=== PATIENT | female | born 1960 | race Caucasian/White ===

== ENCOUNTER 2025-04-08 06:40 | Inpatient (IN) ==
--- NOTE | 2025-03-24 10:15 | Anesthesiology Consultation ---
Date of Service March 24, 2025 Assessment & Plan (1) Encounter for pre-operative examination: - check BSG am DOS. - surgeon ordered medical clearance 03/16/25: "...pre-op lab results and CXR results were reviewed (no significant abnormalities)...low risk...cleared for scheduled surgery...0.1% risk of myocardial infarction or cardiac arrest, intraoperatively or up to 30 days post-op..." - Per coarse wire drawer on 03/23/25: No known infectious disease contacts, current infectious disease symptoms in past 10 days or COVID positive test result in the past 30 days. Chart Review Chart Review: Acceptable Risk for Surgery and Patient NOT seen in Pre Admission Testing History Surgery Operation Date: 04/06/25 07:45 Proposed Procedures p Decompression and Fusion L4-S1 - Quincy Ray DO Height/Weight Height: 5 ft 2 in Weight: 53.07 kg Allergies Allergy/AdvReac Type Severity Reaction Status Date / Time surgical glue Allergy red, Uncoded 03/23/25 15:32 itching, burning skin Medications Home Medications Medication Instructions Recorded Confirmed Last Taken ondansetron HCl 4 mg tablet 4 mg PO Q6H PRN nausea and 12/04/22 03/23/25 Unknown vomiting 4 days #20 tabs acetaminophen 500 mg tablet 1,000 mg PO Q6H PRN Pain 03/23/25 03/23/25 Unknown acetaminophen 650 mg 1,300 mg PO Q12H PRN Pain 03/23/25 03/23/25 Unknown tablet,extended release alendronate 70 mg tablet 70 mg PO Q7D 03/23/25 03/23/25 Unknown anastrozole 1 mg tablet 1 mg PO QAM 03/23/25 03/23/25 Unknown bimatoprost 0.03 % drops with 1 applic topical UD 03/23/25 03/23/25 Unknown applicator, eyelash base (Latisse) celecoxib 200 mg capsule (Celebrex) 200 mg PO QAM 03/23/25 03/23/25 Unknown cholecalciferol (vitamin D3) 125 125 mcg PO BID 03/23/25 03/23/25 Unknown mcg (5,000 unit) tablet (Vitamin D3) clindamycin phosphate 1 % topical 1 applic topical BID PRN Acne 03/23/25 03/23/25 Unknown gel fenofibrate 160 mg tablet 160 mg PO QAM 03/23/25 03/23/25 Unknown glucosamine-chondroitin 250 mg-200 2 tab PO QAM 03/23/25 03/23/25 Unknown mg tablet multivitamin 1 tab PO QAM 03/23/25 03/23/25 Unknown spironolactone 50 mg tablet 50 mg PO QAM 03/23/25 03/23/25 Unknown trazodone 50 mg tablet 50 - 75 mg PO HS PRN RLS 03/23/25 03/23/25 Unknown vitamin C 500 mg-multivitamin with 1 tab PO BID PRN cold season 03/23/25 03/23/25 Unknown minerals chewable tablet (Emergen-C) Past Medical History Medical History (Updated 03/24/25 @ 10:11 by Josiane Villalpando PA-C) Hx of breast cancer dx 11/2021, rt breast, sx and xrt Hx of gastroesophageal reflux (GERD) Past Surgical History Surgical History (Updated 03/24/25 @ 10:11 by Josiane Villalpando PA-C) History of esophagogastroduodenoscopy (EGD) (2004) History of lumpectomy of right breast removed SLN; no limb restriction History of reconstruction of right breast (06/12/23) w/ bilat. breast reduction and reconstruction History of total right knee replacement (02/2013) Hx of colonoscopy ~2019 Hx of hysterectomy (2016) S/P bladder repair bladder sling sx, 2x Social History Smoking Status: Never smoker Do You Dip or Chew Tobacco: No Hx Alcohol Use: Yes alcohol intake frequency: a few times a month Hx Substance Use: No substance use type: former substance user and marijuana Last Used Substance Other:: many years ago, occasional use then Lab Results Anesthesia Preop Results Results Anesthesia Widget: WBC 16.32 K/ul (4.8-10.8) H 02/11/25 Hgb 13.4 g/dl (12.0-16.0) 02/11/25 Hct 39.7 % (37.0-47.0) 02/11/25 Plt 436 K/uL (130-400) H 02/11/25 Na 138 mmol/L (136-145) 02/11/25 K 4.6 mmol/L (3.5-5.1) 02/11/25 Cl 104 mmol/L (98-107) 02/11/25 CO2 25 mmol/L (21-32) 02/11/25 BUN 26 mg/dl (6-23) H 02/11/25 Creat 0.68 mg/dl (0.6-1.2) 02/11/25 Glucose Level 187 mg/dl (70-99(Fasting)) H 02/11/25 PT 10.8 Seconds (9.0-12.0) 02/11/25 PTT 22 Seconds (21-31) 02/11/25 INR 1.0 (0.9-1.1) 02/11/25 Urine Color Yellow 02/11/25 Urine Appearance Clear (Clear) 02/11/25 Urine pH 6.0 (4.5-7.5) 02/11/25 Urine Specific [place] 1.009 (1.000-1.030) 02/11/25 Urine Protein Negative (Negative) 02/11/25 Urine Glucose (UA) Negative (Negative) 02/11/25 Urine Ketones Negative (Negative) 02/11/25 Urine Blood Negative (Negative) 02/11/25 Urine Nitrite Negative (Negative) 02/11/25 Urine Bilirubin Negative (Negative) 02/11/25 Urine Urobilinogen Negative (Negative) 02/11/25 Urine Leukocyte Esterase Negative (Negative) 02/11/25 Blood Type O Negative 02/11/25 Antibody Screen NEGATIVE 02/11/25 Testing Laboratory Results PCP documented review of above labs and clearance for surgery. Electrocardiogram Date: 02/11/25 Sinus rhythm with 1st degree AV block, rate 92 bpm Possible inferior infarct, age undetermined Possible anterior infarct, age undetermined No significant change vs February 04, 2013 EKG Chest X-Ray Date: 02/11/25 Normal chest x-ray
[~2025-04-08 06:40] MED LIST: DEXAMETHASONE SOD INJ 4 MG/ML VIAL ONE; LIDOCAINE 2% 20 MG/ML 5 ML SYR IV ONE; MIDAZOLAM HCL 1 MG/ML 2ML VIAL ONE; ONDANSETRON INJ 2 MG/ML 2 ML VIAL ONE; PROPOFOL IV EMULSION 10 MG/ML 20 ML VIAL IV ONE; ROCURONIUM BROMIDE 10 MG/ML 5 ML VIAL IV ONE
[2025-04-08] MEDS ORDERED: ROCURONIUM BROMIDE 10 MG/ML 5 ML VIAL IV ONE (07:06)
[2025-04-08] MEDS ORDERED: GLYCOPYRROLATE 0.2 MG/ML VIAL ONE (07:06)
[2025-04-08] MEDS ORDERED: ONDANSETRON INJ 2 MG/ML 2 ML VIAL ONE (07:06)
[2025-04-08] MEDS ORDERED: LIDOCAINE 2% 2 ML VIAL/AMP(20MG/ML) INFIL ONE (07:06)
[2025-04-08] MEDS ORDERED: DEXAMETHASONE SOD INJ 4 MG/ML VIAL ONE (07:06)
[2025-04-08] MEDS ORDERED: PROPOFOL IV EMULSION 10 MG/ML 20 ML VIAL IV ONE (07:06)
[2025-04-08] MEDS ORDERED: MIDAZOLAM HCL 1 MG/ML 2ML VIAL ONE (07:06)
[2025-04-08] MEDS ORDERED: SUGAMMADEX SODIUM 200 MG/2 ML VIAL IV ONE (07:10)
[2025-04-08] MEDS ORDERED: KETAMINE HCL 10MG/ML SYR ONE (07:12)
[2025-04-08] MEDS: LR 15ML/HR IV SCH ×2 (07:14→07:25)
[2025-04-08] MEDS: LR 60ML/HR IV SCH ×2 (07:14→07:24)
[2025-04-08] MEDS: ACETAMINOPHEN 500 MG TAB PO SCH ×2 (07:24→07:25)
[2025-04-08] MEDS: GABAPENTIN 600 MG DOSE PO SCH ×2 (07:25)
[2025-04-08] MEDS: CeleBREX 200 MG CAP PO SCH ×2 (07:25)
--- NOTE | 2025-04-08 07:45 | History & Physical Bridge Note ---
Date of Service April 08, 2025 History & Physical Bridge Note I have examined the patient, reviewed the History & Physical and in the interval since the performance of the History & Physical I have noted the following changes of clinical significance: no changes noted
--- NOTE | 2025-04-08 07:46 | History & Physical Report ---
Date of Service April 08, 2025 Assessment & Plan (1) Lumbosacral spondylosis with radiculopathy: Plan: decompression fusion L4-S1 History of Present Illness Chief Complaint: Back and bilateral leg pain Primary Care Provider: Mira Ladd DO This is a 64-year-old female who presents with chronic cyst and back and bilateral leg pain after failing course of nonoperative cares for surgical invention. Allergies Allergy/AdvReac Type Severity Reaction Status Date / Time surgical glue Allergy red, Uncoded 04/08/25 06:40 itching, burning skin Home Medications Medication Instructions Recorded Confirmed Type ondansetron HCl 4 mg tablet 4 mg PO Q6H PRN nausea and 12/04/22 04/08/25 Rx vomiting 4 days #20 tabs acetaminophen 500 mg tablet 1,000 mg PO Q6H PRN Pain 03/23/25 04/08/25 History acetaminophen 650 mg 1,300 mg PO Q12H PRN Pain 03/23/25 04/08/25 History tablet,extended release alendronate 70 mg tablet 70 mg PO Q7D 03/23/25 04/08/25 History anastrozole 1 mg tablet 1 mg PO QAM 03/23/25 04/08/25 History bimatoprost 0.03 % drops with 1 applic topical UD 03/23/25 04/08/25 History applicator, eyelash base (Latisse) celecoxib 200 mg capsule (Celebrex) 200 mg PO QAM 03/23/25 04/08/25 History cholecalciferol (vitamin D3) 125 125 mcg PO BID 03/23/25 04/08/25 History mcg (5,000 unit) tablet (Vitamin D3) clindamycin phosphate 1 % topical 1 applic topical BID PRN Acne 03/23/25 04/08/25 History gel fenofibrate 160 mg tablet 160 mg PO QAM 03/23/25 04/08/25 History glucosamine-chondroitin 250 mg-200 2 tab PO QAM 03/23/25 04/08/25 History mg tablet multivitamin 1 tab PO QAM 03/23/25 04/08/25 History spironolactone 50 mg tablet 50 mg PO QAM 03/23/25 04/08/25 History trazodone 50 mg tablet 50 - 75 mg PO HS PRN RLS 03/23/25 04/08/25 History vitamin C 500 mg-multivitamin with 1 tab PO BID PRN cold season 03/23/25 04/08/25 History minerals chewable tablet (Emergen-C) Past Med/Surg History Problem List (Updated 04/08/25 @ 07:45 by Quincy Ray, DO) Lumbosacral spondylosis with radiculopathy Encounter for pre-operative examination Medical History Hx of breast cancer dx 11/2021, rt breast, sx and xrt Hx of gastroesophageal reflux (GERD) Surgical History History of esophagogastroduodenoscopy (EGD) (2004) History of lumpectomy of right breast removed SLN; no limb restriction History of reconstruction of right breast (06/12/23) w/ bilat. breast reduction and reconstruction History of total right knee replacement (02/2013) Hx of colonoscopy ~2018 Hx of hysterectomy (2016) S/P bladder repair bladder sling sx, 2x Social History Smoking Status: Never smoker Second Hand Exposure: No; Do You Dip or Chew Tobacco: No; Tobacco Cessation Education Requested by Patient: No Hx Alcohol Use: Yes Hx Substance Use: No Preferred Language: Italian Communication Ability: Effective Patcher Bowling Ball Required: No Beliefs That Will Affect Care: None Current Living Situation: Spouse Other Information That Helps Us Care for You: No Feels Safe at Home: Yes Safety Concerns: Feels Safe At This Time Assistive Devices: Contacts Physical Exam Physical Exam: Patient is alert and oriented Heart regular rhythm Lungs clear Results & Data Results & Data Vital Signs (Past 12 Hours) Vital Signs Temp Pulse Resp BP Pulse Ox O2 Del Method 04/08/25 06:53 36.9 C 81 18 143/70 H 96 Room Air
[2025-04-08] MEDS: ceFAZolin 330 MG/ML 1 GM VIAL ONE (08:16)
[2025-04-08] MEDS: BUPIVACAINE/EPINEPHRINE 0.25% 1:200,000 30 ML VIAL ONE (08:16)
--- NOTE | 2025-04-08 09:53 | Fluoroscopy Report ---
INTRAOPERATIVE RADIOGRAPHS CLINICAL HISTORY: L4-S1 spinal fusion. Fluoro time: 19 seconds Ka,r: 12.94 mGy FINDINGS: 2 spot fluoroscopic views of the lumbar spine are presented. There has been discectomy at L 4-L5 and L5-S1 with laminectomy and posterior fusion at L4-S1. Interpedicular screws are present at a ll levels. There orthopedic hardware appears intact. IMPRESSION: Intraoperative images from lumbar spinal fusion surgery as above. Electronically signed by: Shady Lee M.D. 04/08/2025 9:52 AM
--- NOTE | 2025-04-08 09:57 | Operative Report ---
Post Operative Report Pre & Post Diagnosis Operation Date: 04/08/25 07:45 Pre-Op diagnosis: #1 lumbar spondylosis with radiculopathy #2 lumbar spondylolisthesis with radiculopathy #3 lumbar spinal stenosis Postop diagnosis: Same I identified the patient and participated in the time-out.: Yes Procedure Operation Date: 04/08/25 07:45 #1 lumbar decompression with bilateral medial facetectomies and foraminotomies L3-L4, L4-5 L5-S1. #2 posterior spinal fusion L4-S1. #3 placement posterior instrumentation L4-S1. #4 interbody fusion L4-L5 L5-S1. #5 placement of Spira 12 x 26 mm x 2 at L4-5 and 11 x 26 mm x 2 at L5-S1. #6 placement of Proteus, with Koros bone graft in the posterior lateral gutters and os design interbody space. #7 application of versa wrap of the exposed dura. Surgeon Quincy Ray, Quart[employer] Blasting Maggie Wild Estimated Blood Loss 100 Findings Consistent with Post-Op Diagnosis Specimens None Indications This is a 64-year-old female who presents by much diagnosis of clinical course of nonoperative care is here for surgical invention. Description of Procedure Patient was met with identified informed consent obtained. Patient was then taken the operative suite underwent intubation placed in a prone position adjusted without the Dmitry frame. All bony promises well-padded eyes inspected to ensure no external precipice upon them. This point lumbar spine is prepped and draped in normal sterile fashion. Sharp dissection with the assistance of Bovie cautery from down to and exposing the lamina transverse processes of L4-5 and the sacral ala bilaterally. From a [place] 5 fashion complete laminectomy L5 was performed followed by L4 with bilateral medial facetectomies and foraminotomies addressing severe neural compression. I did perform partial laminectomy of L3 with bilateral medial facetectomies to address all subarticular stenosis. Pedicle screws were then placed in L4-L5 and S1 levels bilaterally with assistance of fluoroscopy. By way the transforaminal approach on the right discectomy of L5-S1 was performed endplates guided to subcortical bleeding bone and a 11 x 26 mm Spira cage tapped in position. Then proceeded to the left transforaminal region L5-S1. Again discectomy performed. A second 11 x 26 mm Spira cage tapped in position. Then proceeded L4-L5 by way of transfer approach and left discectomy was performed. Endplates guided to subcortical bleeding bone and a 12 x 26 mm Spira cage tapped into position. Then proceeded to the right transforaminal region at L4-5. Again discectomy performed. Endplates guided to subcortical mean bone and a second 12 x 26 mm Spira cage tapped into position. Please note all cages were filled with os design bone graft. The rods were then compressed locked in final position bilaterally. Transverse processes of L4-5 and sacral ala burred to subcortical bleeding bone. Koros combined with Proteus bone graft placed in posterior gutters. Versa wrap placed of exposed dura. 15 round KERRY drain inserted. Incision was then closed with 1 Vicryl the fascia 2-0 Vicryl subcutaneously and 4 Monocryl for final skin closure. Steri-Strips and sterile dressing placed. Patient waken taken to PACU in stable condition. Please note Maggie Wild was present at the entire procedure and while the patient positioning complex portion of the surgery and final skin closure. I attest to the content of the Intraoperative Record and any orders documented therein. Any exceptions are noted below.
[2025-04-08] MEDS ORDERED: ATROPINE SULFATE 0.1 MG/ML 10ML SYR IV PRN (10:09)
[2025-04-08] MEDS ORDERED: PROMETHAZINE HCL 6.25 MG in SODIUM CHLORIDE 0.9% 50 ML IV PRN (10:09)
[2025-04-08] MEDS ORDERED: ONDANSETRON INJ 2 MG/ML 2 ML VIAL IV PRN (10:09)
[2025-04-08] MEDS: HYDROmorphone INJ 2 MG/ML SYR/VIAL IV PRN (10:59)
[2025-04-08] MEDS ORDERED: ACETAMINOPHEN 1,000 MG/100 ML VIAL IV PRN (11:53)
[2025-04-08] MEDS ORDERED: PROMETHAZINE 12.5 MG/50.5 ML BAG IV PRN (11:53)
[2025-04-08] MEDS ORDERED: NALOXONE HCL 0.4 MG/1 ML VIAL/CARP IV PRN (11:53)
[2025-04-08] MEDS ORDERED: LORazepam 0.5 MG TAB PO PRN (11:53)
[2025-04-08] MEDS ORDERED: NON-FORMULARY MEDICATION (Vitamin C-Multivitamin-Mineral [Emergen-C] 500 mg Tablet,Chewabl PO PRN (11:53)
[2025-04-08] MEDS ORDERED: HYDROmorphone INJ 0.5 MG/0.5 ML SYR IV PRN (11:53)
[2025-04-08] MEDS ORDERED: ONDANSETRON 4 MG OD TAB PO PRN (11:53)
[2025-04-08] MEDS ORDERED: METOCLOPRAMIDE HCL INJ 5 MG/ML 2 ML VIAL IV PRN (11:53)
[2025-04-08] MEDS ORDERED: DO NOT ADMINISTER PNEUMOCOCCAL VACCINE PRN (11:53)
[2025-04-08] MEDS ORDERED: ACETAMINOPHEN 500 MG TAB PO PRN (11:53)
[2025-04-08] MEDS ORDERED: ALUMINUM/MAGNESIUM SUSP 30 ML UDC PO PRN (11:53)
[2025-04-08] MEDS ORDERED: DO NOT ADMINISTER FLU VACCINE PRN (11:53)
[2025-04-08] MEDS ORDERED: LORazepam Inj 0.5 MG in SYRINGE 0.25 ML IV PRN (11:53)
[2025-04-08] MEDS ORDERED: MAGNESIUM HYDROXIDE SUSP 30 ML UDC PO PRN (11:53)
[2025-04-08] MEDS ORDERED: SOD PHOSPHATE/SOD BIPHOSPHATE ENEMA 132 ML BTL PR PRN (11:53)
[2025-04-08] MEDS: FLOSEAL HEMOSTATIC MATRIX 10ML TOP ONE (12:33)
[2025-04-08] MEDS: ONDANSETRON INJ 2 MG/ML 2 ML VIAL IV PRN (12:35)
[2025-04-08] MEDS: LACTATED RINGER'S 1,000 ML IV SCH (13:10)
[2025-04-08] MEDS: HYDROmorphone INJ 1 MG/ML SYRINGE IV PRN (15:37)
[2025-04-08] MEDS: HYDROmorphone INJ 1 MG/ML SYRINGE IV STA (17:16)
--- NOTE | 2025-04-08 17:36 | Hospitalist Consultation ---
"Date of Consultation April 08, 2025 Assessment & Plan (1) Lumbosacral spondylosis with radiculopathy: (2) Hx of breast cancer: (3) Osteoporosis: (4) Nausea: (5) Arthritis: (6) Hyperlipidemia: (7) Acne: (8) Insomnia: Plan 64 y/o F w/ PMHx significant for Osteoporosis, Arthritis, Hx of R knee replacement in 02/2023, HLD, Hx of Breast CA 2021, GERD, Insomnia, and Acne Vulgaris who presents for decompression and fusion of L4-S1 spine. #Lumbosacral Spondylolysis with Radiculopathy - Please See Dr Ray's Note for further details on operation. -Primary Care Team, Dr Ray -LR 60mL/hr -Pain: Tylenol PO Q8H prn mild pain; Hydromorphone 0.5mg prn moderate pain; Hydromorphone 1mg IV prn severe pain -Tramadol and Oxycodone available for pre- PT/OT for pain -CBC, BMP in AM #Osteoporosis - No acute Concerns -Continue Alendronate 70mg Q7D - Sundays -Continue Vit D supplementation #Nausea - Admits to mild Nausea -Continue Promethazine, Zofran #Arthritis - L knee pain; No acute concerns -Pt states she no longer takes Glucosamine-Chondroitin #HLD - No acute concerns -Continue Fenofibrate #Hx of Breast CA - No acute Concerns -Continue Anastrozole #Acne Vulgaris - No acute concerns -Hold Topical Clindamycin -Continue Spironolactone #Insomnia | Mental Health - No acute Concerns -Continue Hydroxyzine 25mg Q8H prn -Continue Ativan prn Sedation/Anxiety -Continue Trazodone #GERD - No acute concerns -Continue Famotidine 20mg PO BID prn VTE Proph: SCD Knee Dispo: Med/Surg The hospitalist team will not be participating in the care of this patient. Thank you for allowing us to participate in the care of this patient, please reach out with any questions or concerns. History of Present Illness Reason for Consultation: Routine Consult Attending Physician: Quincy Ray, DO History of Present Illness 64 y/o F w/ PMHx significant for Osteoporosis, Arthritis, Hx of R knee replacement in 02/2023, HLD, Hx of Breast CA 2021, GERD, Insomnia, and Acne Vulgaris who presents for decompression and fusion of L4-S1 spine after failing course of nonoperative intervention. Allergies Allergy/AdvReac Type Severity Reaction Status Date / Time surgical glue Allergy red, Uncoded 04/08/25 06:40 itching, burning skin Home Medications Medication Instructions Recorded Confirmed Type ondansetron HCl 4 mg tablet 4 mg PO Q6H PRN nausea and 12/04/22 04/08/25 Rx vomiting 4 days #20 tabs acetaminophen 500 mg tablet 1,000 mg PO Q6H PRN Pain 03/23/25 04/08/25 History acetaminophen 650 mg 1,300 mg PO Q12H PRN Pain 03/23/25 04/08/25 History tablet,extended release alendronate 70 mg tablet 70 mg PO Q7D 03/23/25 04/08/25 History anastrozole 1 mg tablet 1 mg PO QAM 03/23/25 04/08/25 History bimatoprost 0.03 % drops with 1 applic topical UD 03/23/25 04/08/25 History applicator, eyelash base (Latisse) celecoxib 200 mg capsule (Celebrex) 200 mg PO QAM 03/23/25 04/08/25 History cholecalciferol (vitamin D3) 125 125 mcg PO BID 03/23/25 04/08/25 History mcg (5,000 unit) tablet (Vitamin D3) clindamycin phosphate 1 % topical 1 applic topical BID PRN Acne 03/23/25 04/08/25 History gel fenofibrate 160 mg tablet 160 mg PO QAM 03/23/25 04/08/25 History glucosamine-chondroitin 250 mg-200 2 tab PO QAM 03/23/25 04/08/25 History mg tablet multivitamin 1 tab PO QAM 03/23/25 04/08/25 History spironolactone 50 mg tablet 50 mg PO QAM 03/23/25 04/08/25 History trazodone 50 mg tablet 50 - 75 mg PO HS PRN RLS 03/23/25 04/08/25 History vitamin C 500 mg-multivitamin with 1 tab PO BID PRN cold season 03/23/25 04/08/25 History minerals chewable tablet (Emergen-C) oxycodone 5 mg tablet 5 mg PO Q6H PRN pain #30 tabs 04/08/25 Rx tramadol 50 mg tablet 50 mg PO Q6H PRN pain, moderate 04/08/25 Rx #30 tabs Patient History Medical History Hx of breast cancer dx 11/2021, rt breast, sx and xrt Hx of gastroesophageal reflux (GERD) Surgical History History of esophagogastroduodenoscopy (EGD) (2004) History of lumpectomy of right breast removed SLN; no limb restriction History of reconstruction of right breast (06/12/23) w/ bilat. breast reduction and reconstruction History of total right knee replacement (02/2013) Hx of colonoscopy ~2019 Hx of hysterectomy (2016) S/P bladder repair bladder sling sx, 2x Social History Smoking Status: Unknown if ever smoked Second Hand Exposure: No; Do You Dip or Chew Tobacco: No; Tobacco Cessation Education Requested by Patient: No Hx Alcohol Use: Yes Hx Substance Use: No Preferred Language: Swedish Communication Ability: Effective Rat Trapper Required: No Beliefs That Will Affect Care: None Current Living Situation: Spouse Other Information That Helps Us Care for You: No Feels Safe at Home: Yes Safety Concerns: Feels Safe At This Time Assistive Devices: Hospital Bed Review of Systems Review of Systems: All systems reviewed & are unremarkable except as noted in Subjective Physical Exam Physical Exam: General: Pt is a 64 y/o WD/WN F in NAD in bed. VS: reviewed, unremarkable Respiratory: CTA bilat, no adventitious sounds noted. Chest expansion is full and symmetrical Cardio: RRR no murmurs Abdomen: Round, normoactive BS x4, nontender to palpation MSK: FROM of extremities, no deformities Extremities: no edema Neuro: A&Ox4, cooperative; sensation of lower limbs intact and equal bilat Results & Data Results & Data Vital Signs (Past 12 Hours) Vital Signs Temp Pulse Pulse Resp BP Pulse Ox O2 Del Method 04/08/25 14:46 83 16 107/64 94 Room Air 04/08/25 13:37 97.7 F 90 18 101/64 94 Room Air 04/08/25 12:29 85 16 123/71 92 Room Air 04/08/25 12:00 97.7 F 86 18 128/74 95 Room Air 04/08/25 11:30 Nasal Cannula 04/08/25 11:30 97.7 F 88 16 128/74 95 Room Air 04/08/25 11:23 68 12 115/60 97 Nasal Cannula 04/08/25 11:10 97.5 F L 67 16 117/59 L 98 Nasal Cannula 04/08/25 11:00 77 10 L 129/70 99 Nasal Cannula 04/08/25 10:50 75 7 L 120/65 92 Nasal Cannula 04/08/25 10:40 79 10 L 113/61 94 Room Air 04/08/25 10:30 74 10 L 128/70 100 Oxymask 04/08/25 10:20 74 15 117/61 99 Oxymask 04/08/25 10:10 70 15 131/57 L 100 Oxymask 04/08/25 10:02 97.0 F L 71 71 18 129/64 99 Oxymask 04/08/25 06:53 98.4 F 81 18 143/70 H 96 Room Air O2 Flow Rate 04/08/25 14:46 04/08/25 13:37 04/08/25 12:29 04/08/25 12:00 04/08/25 11:30 2 04/08/25 11:30 04/08/25 11:23 2 04/08/25 11:10 2 04/08/25 11:00 2 04/08/25 10:50 2 04/08/25 10:40 04/08/25 10:30 7 04/08/25 10:20 7 04/08/25 10:10 7 04/08/25 10:02 7 04/08/25 06:53 PG Care Time/CCT Total # of Minutes Spent Total Time Spent with Patient: Total time spent is greater than 50% in coordination of care (as documented) at patient's floor/unit and/or counseling patient: A total of 45 minutes was spent on care between direct patient contact, review of pt chart, coordination of care, and documentation. Coding Level of Care Code 57447 IN/OBS CONSULT LVL 3,45M Diagnoses Lumbosacral spondylosis with radiculopathy M47.27 Hx of breast cancer Z85.3 Osteoporosis M81.0 Nausea R11.0 Arthritis M19.90 Hyperlipidemia E78.5 Acne L70.9 Insomnia G47.00"
[2025-04-08] MEDS: KETOROLAC TROMETHAMINE 15 MG/ML VIAL IV ONE (17:38)
[2025-04-08] MEDS: DOCUSATE SODIUM/SENNA 50/8.6MG TAB PO SCH (20:33)
[2025-04-08] MEDS: CHOLECALCIFEROL 125 MCG (5,000 UNITS) TAB PO SCH (20:33)
[2025-04-08] MEDS: KETOROLAC TROMETHAMINE 15 MG/ML VIAL IV PRN (23:36)
[2025-04-09] MEDS: POLYETHYLENE (MIRALAX) 17 GM PACK PO SCH (05:41)
[2025-04-09 07:14] LABS: Hematocrit (blood only) 31.6 % (37.0-47.0); Hemoglobin 10.9 g/dL (12.0-16.0); Immature Granulocytes # (auto) 0.10 K/uL (0.01-0.20); Immature Granulocytes % (auto) 0.7 %; Mean Corpuscular Hemoglobin 32.3 pg (25.0-34.0); Mean Corpuscular Volume 93.8 fL (80.0-100.0); Platelet Count 289 K/uL (130-400); RDW Standard Deviation 42.7 fL (36.4-46.3); Red Blood Count 3.37 M/uL (4.20-5.40); White Blood Count 14.52 K/ul (4.8-10.8)
[2025-04-09 08:10] LABS: Anion Gap 5.0 (3-11); Blood Urea Nitrogen 13.0 mg/dl (6-23); Calcium 8.9 mg/dl (8.6-10.3); Carbon Dioxide 29.0 mmol/L (21-32); Chloride 104.0 mmol/L (98-107); Creatinine Clr Calc Pharmacy 83.2 ml/min; Glucose 103.0 mg/dl (70-99(Fasting)); Potassium 3.9 mmol/L (3.5-5.1); Sodium 138.0 mmol/L (136-145)
[2025-04-09] MEDS: dexAMETHasone 4 MG in SYRINGE 0 ML IV SCH (08:26)
[2025-04-09] MEDS: FENOFIBRATE NANOCRYSTALLIZED 145 MG TABLET PO SCH (08:27)
[2025-04-09] MEDS: SPIRONOLACTONE 25 MG TAB PO SCH (08:27)
--- NOTE | 2025-04-09 10:10 | Orthopedic Progress Note ---
Date of Service April 09, 2025 Assessment & Plan (1) Lumbosacral spondylosis with radiculopathy: Plan: At this time we will continue physical therapy monitor KERRY operatively discharge home next few days. Admission and Anticipated Discharge Date Admission Date: April 08, 2025 Subjective Patient's back pain is controlled leg symptoms markedly improved. She is tolerating physical therapy. Physical Exam Physical Exam: Patient is in the chair at the bedside. She is comfortable. Good strength testing. Results & Data Vital Signs (Past 12 Hours) Vital Signs Temp Pulse Resp BP Pulse Ox O2 Del Method 04/09/25 08:00 36.9 C 77 20 104/64 93 Room Air 04/09/25 03:00 36.7 C 82 16 107/62 92 Room Air 04/08/25 23:05 36.8 C 86 16 99/61 L 92 Room Air
[2025-04-09] MEDS: diphenhydrAMINE Capsule 25 MG CAP PO PRN (18:21)
--- NOTE | 2025-04-10 10:43 | Orthopedic Progress Note ---
Date of Service April 10, 2025 Assessment & Plan (1) Lumbosacral spondylosis with radiculopathy: Plan: At this time we will continue physical therapy monitor her KERRY operatively discharge home tomorrow. Admission and Anticipated Discharge Date Admission Date: April 08, 2025 Subjective Back pain controlled leg symptoms markedly improved Physical Exam Physical Exam: Patient is in bed at this time. He is comfortable. Good strength testing. Results & Data Vital Signs (Past 12 Hours) Vital Signs Temp Pulse Resp BP Pulse Ox O2 Del Method 04/10/25 08:10 36.8 C 80 14 128/78 94 Room Air
[2025-04-10] MEDS: FAMOTIDINE 20 MG TAB PO PRN (15:58)
[2025-04-11 07:27] VITALS: BP 126/76; PULSE 77; RESP 14; TEMP 97.7; O2SAT 98
--- NOTE | 2025-04-11 10:00 | Discharge Summary ---
Date of Service April 11, 2025 Admission HPI Per Admitting Provider This is a 64-year-old female who presents with chronic cyst and back and bilateral leg pain after failing course of nonoperative cares for surgical invention. Principal Diagnosis Lumbar spondylolisthesis with radiculopathy Discharge Data Allergies Allergy/AdvReac Type Severity Reaction Status Date / Time surgical glue Allergy red, Uncoded 04/08/25 06:40 itching, burning skin Consultations 04/08/25 11:53 Consult Hospitalist Routine Procedures Performed Operation Date: 04/08/25 07:45 Actual Procedures p L4-S1 Decompression and Fusion(Not Applicable) - Quincy Ray DO Ordered Studies 04/08/25 07:45 [place] lumbar spine 2-3V Routine Hospital Course (1) Lumbosacral spondylosis with radiculopathy: Patient had 1 morning motion fusion trial as well as second orthopedic laparoscopically. Postoperatively she progressed properly. KERRY drain decreasing. Excellent strength testing. Pain well-controlled. Subsidy discharged home. Discharge orders and instructions from the chart for further review. Total Time Total Time Spent Total Time Spent (In Minutes): 20 minutes Discharge Plan Discharge Items Patient Disposition: Home - Self-Care Reason For Visit: 2 Level Lumbosacral Spondylosis with Radiculopathy Discharge Diagnosis: Lumbar spondylosis with radicular Activity: As commented below Non-emergency contact: Primary Care Provider Call non-emergency contact if: you have any medication questions Follow-up/Referrals: Mira Ladd DO [Primary Care Provider] - Diet: Regular Addtl Attending Provider Instructions: ACTIVITY RECOMMENDATIONS: SELF CARE INSTRUCTIONS AFTER THORACIC/LUMBAR FUSIONS 1. You may walk to your tolerance. It is good exercise for your legs and back. Expect some back and intermittent leg aches and pains. 2. You may perform "counter-top" level activities (make a sandwich, kelsey with a project, etc.). 3. No bending or lifting of more than 10 pounds or back twisting of any nature (roll like a log when turning in bed). 4. You may ride in a car for 20-30 minutes at a time. No driving until after your first visit with your doctor. 5. Frequent changes of position and restricting sitting to 30 minutes at a time will help limit the amount of back spasms and stiffness you may experience. 6. You may discontinue the use of ambulatory aids (cane, crutches, etc.) once your strength and confidence allow. 7. You may soldering technician the shower and let water strike your incision when you arrive home at least once daily. Do not take a tub bath, sit in a hot tub or go into a swimming pool until after your first recheck in the office. 8. You may resume previous diet. SPECIAL CARE INSTRUCTIONS: VERY IMPORTANT TO READ AND REVIEW A. Your surgical incision has been closed with a cosmetic suture under the skin that will dissolve in about 6 weeks. In 14 days, you can use a pair of clean scissors and cut the suture that is left outside of the skin at the ends of your incision. 1. The small skin tapes can be removed 7 days after surgery if they have not fallen off by that point. 2. You may keep the wound open to air as much as possible to promote healing after post-op day number 5 unless told otherwise by your doctor. 3. If you think the wound looks like it is becoming infected (redness or worsening drainage) and/or you are experiencing fever, chill or worsening back pain and muscle spasms, contact the office so that we may evaluate you as soon as possible. B. Complications are uncommon, but please contact us if you have any signs or symptoms of: 1. wound infection (fever higher than 102.5 degrees F, redness, separation of wound, drainage, or increasing pain from the incision) 2. blood clots in legs (pain, swelling, redness and warmth in legs) 3. urinary tract infection (fever higher than 102.5 degrees F, burning upon urination or increased frequency of urination) 4. nerve problems (inability to walk on your toes or heels, numbness, loss of bowel or bladder control) 5. any other symptoms that concern you C. Please call the office at if you have any concerns or questions about your operation or recovery. D. No smoking! Smoking drastically decreases the chance of a solid fusion. E. Do not take any anti-inflammatory medications (Indocin, Advil, Motrin, Aspirin, Naprosyn, etc.) as these may inhibit the chance of a solid fusion. Tylenol is okay to take for pain. MANAGING PAIN AFTER SPINAL SURGERY 1. Narcotic medication is intended for short-term use and will be provided for surgical pain. Surgical pain usually lasts for a period of 4-6 weeks. Narcotic medication includes Percocet, Vicodin, Darvocet, Tylenol #3 or Lortab. 2. Longer-term pain is more appropriately treated with non-narcotic medication such as Tylenol ES. 3. Muscle spasm is not appropriately treated with narcotics. Muscle relaxers such as Soma, Flexeril or Skelaxin can be used along with Tylenol ES. 4. Remember that we all live with some "aches and pains". This is not unusual or uncommon after an injury or as we get older. a. Back pain is expected and may include muscle spasms for 4 to 6 weeks after surgery. The pain should gradually improve. If the pain worsens for no apparent reason, please contact the office. b. Intermittent leg pain may also be experienced and should not be concerned about unless it worsens for no apparent reason. If so, please contact the office. 5. We will provide appropriate medication within the normal guidelines of their prescribed use. We will also be very cautious and aware of potential abuse and extended duration of patients' medication needs. a. Pain medications are for your comfort and to assist with sleep and rest so that the tissue can heal. They are not provided in order to return to normal activity and should not be used through the day. To do so or worsening pain at night can result from ongoing tissue damage and development of tolerance to the prescribed medicine. 6. Please allow 2-3 days to process refills. Prescriptions will not be mailed but must be picked up at the office. FOLLOW UP VISIT: Keep your scheduled follow-up appointment. Any questions, please call the office at . Pending Studies at Discharge: No Stand-Alone Forms: My [facility], Smoking Cessation Medications and DC Order Prescriptions: New tramadol 50 mg tablet 50 mg PO Q6H PRN (Reason: pain, moderate) Qty: 30 0RF oxycodone 5 mg tablet 5 mg PO Q6H PRN (Reason: pain) Qty: 30 0RF Continued ondansetron HCl 4 mg tablet 4 mg PO Q6H PRN (Reason: nausea and vomiting) 4 Days Qty: 20 1RF multivitamin Tablet 1 tab PO QAM celecoxib [Celebrex] 200 mg Capsule 200 mg PO QAM anastrozole 1 mg Tablet 1 mg PO QAM trazodone 50 mg Tablet 50 - 75 mg PO HS PRN (Reason: RLS) alendronate 70 mg Tablet 70 mg PO Q7D Patient Comments: sundays acetaminophen 500 mg Tablet 1,000 mg PO Q6H PRN (Reason: Pain) acetaminophen 650 mg Tablet Extended Release 1,300 mg PO Q12H PRN (Reason: Pain) glucosamine-chondroitin [Osteo Bi-Flex] 250-200 mg Tablet 2 tab PO QAM fenofibrate 160 mg Tablet 160 mg PO QAM cholecalciferol (vitamin D3) [Vitamin D3] 125 mcg (5,000 unit) Tablet 125 mcg PO BID Emergen-C 500 mg Tablet,Chewable 1 tab PO BID PRN (Reason: cold season) clindamycin phosphate 1 % gel 1 applic topical BID PRN (Reason: Acne) spironolactone 50 mg tablet 50 mg PO QAM bimatoprost [Latisse] 0.03 % drops with applicator 1 applic topical UD Rx Instructions: every 2-3 days for maintenance Discharge Orders: Discharge Order (Routine); Ordered 04/11/25 Ordered By: Quincy Ray Admission Data Admit Date/Time: 04/08/25 10:01 Attending Provider: Quincy Ray Admit Provider: Quincy Ray Primary Care Provider: Mira Ladd Other Providers: Jeremy Saldivar
== END 2025-04-11 10:45 | disposition home or self-care (01) | DRG 428 ==
LOC: ASU 06:40 → 3N 10:01 → 3E 04-09 13:20